=== PATIENT | male | born 1945 | race Two or more races ===

== ENCOUNTER 2017-10-16 08:29 | Emergency (ER) | payer MEDICARE, MEDICAID ==
[~2017-10-16] VITALS: Ht 160 cm; Wt 76.2 kg
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
--- NOTE | 2017-10-16 08:50 | NUR ---
MD FLORES AT
[2017-10-16] MEDS ORDERED: HYDROCODONE/APAP 5/325MG 1 EACH TABLET PO ONE (09:00)
[2017-10-16] MEDS ORDERED: LABETALOL HCL (100MG) 100 MG TABLET PO ONE (09:00)
[2017-10-16] MEDS ORDERED: HYDROCODONE/APAP 5/325MG 1 EACH TABLET ONE (09:00)
[2017-10-16] MEDS ORDERED: ONDANSETRON 4 MG TAB.RAPDIS PO ONE (09:00)
[2017-10-16] MEDS ORDERED: ONDANSETRON 4 MG TAB.RAPDIS ONE (09:01)
[2017-10-16] MEDS ORDERED: LABETALOL HCL (100MG) 100 MG TABLET ONE (09:01)
--- NOTE | 2017-10-16 09:10 | NUR ---
PT MEDICATED ORDERED
[2017-10-16 10:27] VITALS: BP 127/77
--- NOTE | 2017-10-16 10:28 | NUR ---
Patient discharged to home in stable condition. Written and verbal after care instructions given. Patient verbalizes understanding of instruction.
--- NOTE | 2017-10-16 10:28 | NUR ---
IV removed. Catheter intact and site benign. Pressure and 4x4 applied to site. No bleeding noted.
== END 2017-10-16 10:28 | disposition home or self-care (01) ==
LOC: ER 08:31
DX: S39.012A Strain of muscle, fascia and tendon of lower back, initial encounter (principal); S63.602A Unspecified sprain of left thumb, initial encounter; R51 Headache; I10 Essential (primary) hypertension; V49.49XA Driver injured in collision with other motor vehicles in traffic accident, initial encounter; Y93.89 Activity, other specified; Y92.488 Other paved roadways as the place of occurrence of the external cause; Y99.8 Other external cause status
CPT/HCPCS: 70450; 72110; 73130; 99284; A4606; Q0162; Z7610